=== PATIENT | female | born 1980 | race Caucasian/White ===

== ENCOUNTER → 2021-07-08 08:32 | Outpatient (CLI) | payer BC, SELFPAY ==
[2021-07-09 19:40] LABS: SARS-CoV-2 RNA PCR Negative
== END ==
PROVIDERS: PCP Family Medicine; Visit Provider Family Medicine
DX: Z20.822 Contact with and (suspected) exposure to COVID-19 (principal)
CPT/HCPCS: C9803; U0003; U0005

== ENCOUNTER 2022-01-15 07:39 | Outpatient (CLI) | payer BC, SELFPAY ==
--- NOTE | ~2022-01-15 | CT_ITS ---
EXAMINATION: CT soft tissue neck wo/w con DATE: 01/15/2022 08:11 INDICATION: Benign neoplasm of the parathyroid gland TECHNIQUE: Computed tomography (CT) of the neck was performed without and with 75 mL Omnipaque-300 in travenous contrast. Automated exposure control and iterative reconstruction technique were employed. The dose-length product was 748.37 mGy-cm. COMPARISON: None FINDINGS: Visualized portions of the bilateral mid to upper lungs are clear. Superior mediastinum is unremarkab le with normal caliber thoracic aorta with no dissection and no pathologically enlarged lymphadenopat hy. No other abnormal mediastinal masses identified. There is a 5 x 4 x 3 mm density caudal to the in ferior left thyroid lobe along side the contrast opacified inferior left thyroid artery and left ante rolateral margin of the trachea. Additional 6 x 5 x 4 mm nodule inferior to the right thyroid lobe al carlos the anterior margin of the proximal most right common carotid artery and right anterolateral arnoldo in of the trachea is also represent a potential parathyroid adenoma. Differential for both nodules in clude small lymph nodes. Thyroid gland is normal. Relatively symmetric pattern of multiple small norm al-sized lymph nodes in both the left and right head and neck. Bilateral parotid and submandibular gl ands are normal. Mild mucosal thickening in the bilateral ethmoid and maxillary sinuses. Orbits are n ormal. Visualized portion of the brain are normal with no abnormal enhancing lesions. Mastoid air glenys ls and middle ear cavities are clear. Cervical vasculature is unremarkable. 11 mm diameter lytic lesi on within the C6 vertebral body with suggestion of an internal trabecular pattern and small regions o f central fat attenuation which would favor hemangioma. Moderate lower cervical spondylosis. IMPRESSION: 1. A couple subcentimeter nodules as detailed above just inferior to the left and right thyroid lobes either which could represent a parathyroid adenoma or small lymph node. 2. Indeterminate 11 mm lytic lesion at C6 with appearance suggestive but not diagnostic of hemangioma . Reviewed, dictated and finalized at location A. IMPRESSION: 1. A couple subcentimeter nodules as detailed above just inferior to the left a nd right thyroid lobes either which could represent a parathyroid adenoma or sm all lymph node. 2. Indeterminate 11 mm lytic lesion at C6 with appearance suggestive but not di agnostic of hemangioma.
== END 2022-01-15 07:40 | disposition home or self-care (01) ==
PROVIDERS: PCP Family Medicine; Visit Provider Otolaryngology
DX: D35.1 Benign neoplasm of parathyroid gland (principal)
CPT/HCPCS: 70492; Q9967

== ENCOUNTER 2024-08-17 15:24 | Emergency (ER) | payer BC, SELFPAY ==
[2024-08-17 15:34] VITALS: BP 195/121; PULSE 98; RESP 14; TEMP 36.3; O2SAT 100
[2024-08-17 15:35] VITALS: BP 186/123
--- NOTE | 2024-08-17 15:39 | ED_ITS ---
HPI - Nausea/Vomiting/Diarrhea General Chief complaint: Nausea/Vomiting/Diarrhea Stated complaint: suspected dehydration, n/v 2d Time Seen by Provider: 08/17/24 15:39 Focused HPI: This is a 43-year-old female that presents emergency department for nausea, vomiting and diarrhea. Ongoing since yesterday. Presents for possible dehydration. Reports subjective fevers. GENERAL: Uncomfortable, well-nourished, and in no acute distress. HEAD: Normocephalic, atraumatic. CHEST: Clear to auscultation. ?No respiratory distress. HEART: Regular rate and rhythm.? NEURO: ?Alert and oriented x3. Patient screened in triage and initial orders placed.? ?Additional care and disposition to be based upon?diagnostic testing and treatment. Related Data Home Medications ?Medication ?Instructions ?Recorded ?Confirmed ?Last Taken ?Type aspirin 325 mg tablet 325 mg PO DAILY 12/18/21 12/18/21 Unknown History atorvastatin 20 mg tablet 20 mg PO DAILY 12/18/21 12/18/21 Unknown History Allergies Allergy/AdvReac Type Severity Reaction Status Date / Time No Known Allergies Allergy Unverified 08/17/24 15:25 Review of Systems 2 Review of Systems: All systems reviewed & are unremarkable except as noted in HPI and below PMFSH Past Medical History Medical History (Updated 08/17/24 @ 17:37 by Shelly Christensen PA-C) History of hyperlipidemia History of hypertension Social History Social History Smoking status: Current every day smoker Tobacco type: cigarettes Alcohol intake: never Substance use: never Exam 2 Narrative: GENERAL: Well-appearing, well-nourished, and in no acute distress. HEAD: Normocephalic, atraumatic. EYES: EOMI. CHEST: Clear to auscultation. No respiratory distress. No wheezes rales or rhonchi HEART: Regular rate and rhythm. No murmur heard. Normal peripheral pulses. ABDOMEN: Soft, nondistended EXTREMITIES: Normal range of motion. No edema. SKIN: Warm, dry, no rash. NEURO: No focal deficits. Alert and oriented x3. PSYCH: Normal mood and affect Course Course Emergency Course: Patient came up to triage requesting to have her IV taken out and to leave. I informed her of her results thus far. I did encourage her to stay for further evaluation with likely imaging of her abdomen, also to treat her blood pressure. She does not wish to stay any longer Vital Signs Vital signs: Vital Signs Temperature 97.4 F L 08/17/24 15:34 Pulse Rate 98 08/17/24 15:34 Respiratory Rate 14 08/17/24 15:34 Blood Pressure 195/121 H 08/17/24 15:34 Pulse Oximetry 100 08/17/24 15:34 Oxygen Delivery Room Air 08/17/24 15:34 Temperature 97.4 F L 08/17/24 15:34 Pulse Rate 99 08/17/24 16:50 Respiratory Rate 17 08/17/24 16:50 Blood Pressure 190/125 H 08/17/24 16:50 Pulse Oximetry 100 08/17/24 16:50 Oxygen Delivery Room Air 08/17/24 15:34 MDM - Nausea/Vomiting/Diarrhea MDM Narrative Medical decision making narrative: Patient presents to the emergency department for nausea, vomiting and diarrhea. She is afebrile and nontoxic appearing. Her blood pressure is elevated to 180s- 190s systolic. She has known history of hypertension and has not been able to keep down her blood pressure medication. CBC with leukocytosis to 13.1. Also shows hemoconcentration. Metabolic panel without concerning findings. COVID, influenza and RSV tests are negative. Patient came up to triage requesting to have her IV taken out and to leave. She reports improvement after zofran and pepcid. I informed her of her results thus far. I did encourage her to stay for further evaluation with likely imaging of her abdomen, also to treat her blood pressure. She does not wish to stay any longer. She was instructed to return any time for further evaluation and management. She does report she will take her blood pressure medication when she gets home Differential Diagnosis Differential diagnosis: Likely food poisoning, gastroenteritis, dehydration and other (diverticulitis, SBO, kidney stone, UTI) Lab Data Attestation: I reviewed the patient's lab results. 08/17/24 15:47 08/17/24 15:47 Labs: Lab Results 08/17/24 Range/Units 15:47 WBC 13.1 H (4.5-10.0) K/mm3 RBC 5.60 H (4.2-5.4) M/mm3 Hgb 17.1 H (12.0-15.0) g/dL Hct 49.5 H (37.0-47.0) % MCV 88.4 (80-100) fl MCH 30.5 (26-34) pg MCHC 34.5 (32-36) g/dl RDW 12.4 (11.5-14.5) % Plt Count 289 (150-375) k/mm3 MPV 10.0 (7.4-10.4) fl Immature Gran % (Auto) 0.5 (0-0.5) % Neut % (Auto) 85.3 H (45.5-73.1) % Lymph % (Auto) 7.2 L (18.3-44.2) % [place] % (Auto) 6.6 (2.6-8.5) % Eos % (Auto) 0.2 (0-4.4) % Baso % (Auto) 0.2 (0.2-1.2) % Lymph # (Auto) 0.94 (0.9-3.2) K/mm3 [place] # (Auto) 0.9 H (0.1-0.6) K/mm3 Eos # (Auto) 0.0 (0-0.3) K/mm3 Baso # (Auto) 0.0 (0.0-0.1) K/mm3 Abs Immat Gran (auto) 0.07 H (0.00-0.031) K/mm3 Absolute Neuts (auto) 11.2 H (1.3-6.7) K/mm3 Absolute Nucleated RBC 0.000 (0.0-0.012) K/mm3 Nucleated RBC % 0.0 (0.0-0.2) % Sodium 135 L (137-145) mmol/L Potassium 3.7 (3.4-5.0) mmol/L Chloride 96 L (98-107) mmol/L Carbon Dioxide 27 (22-30) mmol/L Anion Gap 12 (4-12) mmol/L BUN 10 (7-17) mg/dL Creatinine 0.70 (0.7-1.0) mg/dL Estim Creat Clear Calc 91 ml/min Estimated GFR > 60 (59 - ) Glucose 133 H (65-110) mg/dL Calcium 10.9 H (8.4-10.2) mg/dL Total Bilirubin 0.5 (0.2-1.3) mg/dL AST 29 (14-36) U/L ALT 25 (6-35) U/L Alkaline Phosphatase 96 (38-126) U/L Total Protein 8.0 (6.3-8.2) g/dL Albumin 4.7 (3.5-5.1) g/dL Lipase 110 (23-300) U/L Influenza A (RT-PCR) Negative (Negative) Influenza B (RT-PCR) Negative (Negative) RSV (RT-PCR) Negative (Negative) SARS-CoV-2 RNA (RT-PCR) Negative (Negative) Critical Care Time Critical Care Time Critical Care Time: No Discharge Plan Discharge Clinical Impression: Gastroenteritis Hypertension Qualifiers: Hypertension type: unspecified Qualified Code(s): I10 - Essential (primary) hypertension Patient Disposition: Home, Self-Care Condition: Improved Instructions: Gastroenteritis (ED), Hypertension (ED) Additional Instructions: Return to the ER if you experience fever, abdominal pain with nausea and vomiting, you are unable to keep down liquids or solids, pain or burning with urination, blood in the urine or any other symptoms that are concerning to you Small, frequent meals. [place] diet. Remain well hydrated. Ondansetron as needed for nausea Follow up with your primary care doctor Patient Language: Sami Prescriptions: New ondansetron 4 mg tablet,disintegrating 4 mg PO Q8H PRN (Reason: nausea and vomiting) Qty: 14 0RF No Action atorvastatin 20 mg tablet 20 mg PO DAILY aspirin 325 mg tablet 325 mg PO DAILY Follow-up/Referrals: Chiki,MD David [Primary Care Provider] -
--- OUTSIDE RECORDS SUMMARY | 2024-08-17 15:44 | XMS_ITS | Clinical Summary ---
Author Organization [facility] Address [address], [address] [address] Phone Care Team Providers Care Fermenting Cellar Dropper Name Role Phone David Monet MD Primary Care Provider [phone] Allergies No known active allergies Medications No known medications Family History Medical History Relation Name Comments Diabetes Father Alzheimer's Disease Maternal Grandfather Cancer Maternal Grandmother Leukemia/Lymphoma Maternal Grandmother Glaucoma Mother Cancer Paternal Grandmother Relation Name Status Comments Father Maternal Grandfather Maternal Grandmother Mother Alive Paternal Grandmother Social History Tobacco Use Types Packs/Day Years Used Date Smoking Tobacco: Every Day Cigarettes 0.3 31.1 Started: 1995 Smokeless Tobacco: Never Tobacco Cessation:Ready to Q uit: Not Asked; Counseling Given: Not Answered Alcohol Use Standard Drinks/Week Comments Yes 0 (1 standard drink = 0.6 oz pur e alcohol) Rare Comments Unknown Sex and Gender Information Value Date Recorded Sex Assigned at Not on file Legal Sex Female 10:02 AM CDT Gender Identity Not on file Sexual Orientation Not on file Last Filed Vital Signs Vital Sign Reading Time Taken Comments Blood Pressure - - Pulse - - Temperature - - Respiratory Rate - - Oxygen Saturation - - Inhaled Oxygen Concentration - - Weight 84.4 kg (186 lb) 04/11/2024 10:07 AM CDT Height 175.3 cm (5' 9 ) 04/11/2024 10:07 AM CDT Body Mass Index 27.47 04/11/2024 10:07 AM CDT Plan of Treatment Not on file Insurance [place] [id number] Care Teams Fermenting Cellar Dropper Relationship Specialty Start Date End Date David Monet MD [address] [place] [address] PCP - General Family Medicine 01/27/24
--- OUTSIDE RECORDS SUMMARY | 2024-08-17 15:44 | XMS_ITS | CONTINUITY OF CARE DOCUMENT ---
Author Name evelyn rivas Address Unknown Organization [facility] Address [address] [place] [address] Phone [phone] Care Team Providers Care Bottle Carrier Name Role Phone Fredy Truong MD Unavailable HÉCTOR BARRERA MD Unavailable [phone] HÉCTOR BARRERA MD Unavailable PROBLEMS Condition Status Date Provider Notes Cardiology examination active Fredy doyle MD Elevated Troponin, ruled out for [place] active Fredy Truong MD HTN essential active Fredy Truong MD Hypercholesterolemia active Fredy Truong MD Preop cardiovasc. examination active Fredy Truong MD Hypercalcemia active Fredy Truong MD Hyperparathyroidism active Fredy Nunez Anxiety active Fredy Truong MD ENCOUNTERS Date Type Provider Location Encounter Diag nosis - In-person encounter Office Visit Fredy Truong MD [facility] - In-person encounter Office Visit Fredy Truong MD [facility] - In-person encounter Office Visit Fredy Truong MD [facility] - In-person encounter Office Visit Fredy Truong MD [facility] Elevated Troponin, ruled out for MIAnxie ty - In-person encounter Office Visit Fredy Truong MD [facility] Cardiology examinationElevated Troponin, ruled out for MIHTN essentialHypercholesterolemiaPreop cardiovasc. examinationHypercalcemiaHyperparathyroidism VITAL SIGNS Date Observation Value Provider Body Mass Index (Ratio) 27.91 kg/m2 Yola Truong MD blood pressure, diastolic 84 mm[Hg] Li nkLog blood pressure, systolic 118 mm[Hg] Rufina kLog oxygen saturation, oximetry 98 % Heidi Montilla pulse rate 97 /min Heidi Montilla blood pressure, cuff size regular Ta janett Omntilla blood pressure, diastolic 84 mm[Hg] Ta bitha Montilla blood pressure, systolic 118 mm[Hg] Tab itha Montilla weight E&M 189 [lb_av] Heidi Montilla respiratory rate E&M 12 /min Heidi Montilla height E&M 69 [in_i] Heidi Montilla Body Mass Index (Ratio) 26.87 kg/m2 Yola Truong MD blood pressure, cuff size large Ke rri Zeny blood pressure, diastolic 80 mm[Hg] Ke rri Zeny blood pressure, systolic 116 mm[Hg] Zain ri Mary oxygen saturation, oximetry 98 % Vania Hernandez respiratory rate E&M 14 /min Vania guthrie pulse rate 79 /min Vania Chad downser weight E&M 182 [lb_av] Vania downser height E&M 69 [in_i] Vania Chad er Body Mass Index (Ratio) 26.43 kg/m2 Mk Byrne blood pressure, diastolic 109 mm[Hg] St baldo Mosley blood pressure, systolic 168 mm[Hg] Sta kerry Mosley oxygen saturation, oximetry 98 % Helgakerry Mosley pulse rate 84 /min Helgakerry Mosley respiratory rate E&M 18 /min Helga D tonie weight E&M 179 [lb_av] Helgakerry Mosley height E&M 69 [in_i] Helga Mosley Body Mass Index (Ratio) 25.84 kg/m2 Yola Truong MD blood pressure, diastolic 109 mm[Hg] Kim archuleta Gore blood pressure, systolic 157 mm[Hg] Sandeep dela cruz Gore oxygen saturation, oximetry 98 % Adrianne Gore pulse rate 100 /min Adrianne nunez weight E&M 175 [lb_av] Adrianne nunez respiratory rate E&M 16 /min Carlee cintron Gore blood pressure, cuff size large Kim archuleta Bao height E&M 69 [in_i] Adrianne nunez Body Mass Index (Ratio) 25.99 kg/m2 Yola Truong MD blood pressure, diastolic 112 mm[Hg] Casie nkLogjagjit blood pressure, systolic 164 mm[Hg] Rufina Mcgeeogjagjit blood pressure, diastolic 112 mm[Hg] St acpaulina Mosley blood pressure, systolic 164 mm[Hg] John Mosley oxygen saturation, oximetry 97 % Helga Mosley respiratory rate E&M 18 /min Helga schilling pulse rate 85 /min Helga Mosley weight E&M 176 [lb_av] Helga Mosley height E&M 69 [in_i] Helga Mosley HISTORY OF MEDICATION USE Medication Status Instructions Dates Provider Indications Com ments phentermine 30 mg capsule active TAKE 1 CAPSULE BY MOUTH ONCE DAILY IN THE MORNING Ferdy Truong MD celecoxib 200 mg capsule active Fredy Truong MD diclofenac sodium 75 mg tablet,delayed release (DR/EC) completed - 7 Fredy Truong MD atorvastatin 20 mg tablet active Fredy Truong MD lisinopril 20 mg tablet active Take 1 tablet by mouth once a day 9 Fredy Truong MD pantoprazole 40 mg tablet,delayed release (DR/EC) active Helga Mosley lisinopril 10 mg tablet completed - 9 Fredy Truong MD SOCIAL HISTORY Date Observation Value Provider number of years as a smoker 20 a Fredy Truong MD smoking history, tot al pack/day 5-6 cigs a day Fredy Truong MD cigarette use yes Fredy Truong MD smoking status Current every day smoker Yumiko Truong MD social history reviewed E&M revi ewed - no changes required Fredy Truong MD number of years as a smoker 20 a Vania Hernandez smoking history, tot al pack/day 5-6 cigs a day Vania Hernandez cigarette use yes Vania leggett smoking status Current every day smoker K frannie Hernandez smoking status Former smoker Helga Mosley smoking status Former smoker Fredy Gardner ra, MD social history reviewed E&M revi ewed - no changes required Fredy Truong MD social history E&M S moking History: P atient currently smokes every day. Fredy Truong MD social history reviewed E&M revi ewed - no changes required Fredy Truong MD smoking status Former smoker Helga Mosley INSURANCE PROVIDERS Payer name Policy type / Coverage type Stanley red democrat ID [facility] Medicaid [id number] ADVANCE DIRECTIVES Name Date DISCUSSED - NO DECISION MADE TREATMENT PLAN Date Name Performer [id number],B, H er updated medication list for this problem includes: Lisinopril 20 Mg Tablet (Lisinopril) ..... Take 1 tablet by mouth once a day Amlodipine 5 Mg Tablet (Amlodipine) ..... Take 1 tablet by mouth once a day BP today: 116/80 P rior BP: 168/109 (08/31/2022) Fredy Truong MD [id number],S, H er updated medication list for this problem includes: Atorvastatin 20 Mg Tablet (Atorvastatin) Fredy Truong MD [id number],S, Fredy Gardner ra, MD [id number],S, Fredy Gardner ra, MD [id number],W, Fredy Gardner ra, MD [id number],S, Fredy Gardner ra, MD [id number],S, Fredy aGrdner ra, MD [id number],S, H er updated medication list for this problem includes: Atorvastatin 20 Mg Tablet (Atorvastatin) Fredy Truong MD [id number],W, B P today: 157/109 P rior BP: 164/112 (06/02/2022) The following medications were removed from the medication list: Lisinopril 10 Mg Tablet (Lisinopril) & #13;Her updated medication list for this problem includes: Lisinopril 10 Mg Tablet (Lisinopril) Fredy Truong MD [id number],N, Fredy Gardner ra, MD [id number],N, Fredy Gardner ra, MD [id number],N, H er updated medication list for this problem includes: Lisinopril 10 Mg Tablet (Lisinopril) Fredy Truong MD [id number],S, Fredy Gardner ra, MD [id number],W, H er updated medication list for this problem includes: Lisinopril 10 Mg Tablet (Lisinopril) Fredy Truong MD [id number],N, Fredy Gardner ra, MD Telehealth - f/u in march abhishek Truong MD Telehealth - f/u in march: H er updated medication list for this problem includes: Atorvastatin 20 Mg Tablet (Atorvastatin) Fredy Truong MD Telehealth - f/u in march: P rior BP: 118/84 (03/27/2024) Her updated medication list for this problem includes: Lisinopril 20 Mg Tablet (Lisinopril) ..... Take 1 tablet by mouth once a day Fredy Truong MD Telehealth - f/u in march: c leared for upcoming parathyroidectomy Fredy Truong MD Cardiology:candidate for surgery Fredy Truong MD Cardiology:at appropriate riks f or colooscopy Fredy Truong MD Cardiology: H er updated medication list for this problem includes: Lisinopril 20 Mg Tablet (Lisinopril) ..... Take 1 tablet by mouth once a day Amlodipine 5 Mg Tablet (Amlodipine) ..... Take 1 tablet by mouth once a day BP today: 116/80 P rior BP: 168/109 (08/31/2022) Fredy Truong MD Cardiology: H er updated medication list for this problem includes: Atorvastatin 20 Mg Tablet (Atorvastatin) Fredy Truong MD Cardiology Fredy Nunez Cardiology Fredy Nunez Cardiology Fredy Nunez Cardiology Fredy Nunez Cardiology Fredy Nunez Cardiology: H er updated medication list for this problem includes: Atorvastatin 20 Mg Tablet (Atorvastatin) Fredy Truong MD Cardiology: B P today: 157/109 P rior BP: 164/112 (06/02/2022) The following medications were removed from the medication list: Lisinopril 10 Mg Tablet (Lisinopril) Her updated medication list for this problem includes: Lisinopril 10 Mg Tablet (Lisinopril) Fredy Truong MD Cardiology Fredy Nunez Cardiology Fredy Nunez Cardiology: H er updated medication list for this problem includes: Lisinopril 10 Mg Tablet (Lisinopril) Fredy Truong MD Cardiology Fredy Nunez Cardiology: H er updated medication list for this problem includes: Lisinopril 10 Mg Tablet (Lisinopril) Fredy Truong MD Cardiology Fredy Nunez Date Name Ambulatory BP Stress Exercise Card iolite HISTORY OF PROCEDURES Procedure Date Procedure Name Provider Procedure Notes S tatus EKG Fredy Truong MD complet ed EKG Fredy Truong MD complet ed
--- OUTSIDE RECORDS SUMMARY | 2024-08-17 15:44 | XMS_ITS | Clinical Summary ---
Author Organization [facility] Address [address] [place] [address]. [place], [place] [address] [place] [id number] Care Team Providers Care Product Management Consultant Name Role Phone David Monet MD Primary Care Provider [phone] Social History Tobacco Use Types Packs/Day Years Used Date Smoking Tobacco: Never Assessed Comments Unknown Sex and Gender Information Value Date Recorded Sex Assigned at Not on file Legal Sex Female 10:50 AM CDT Gender Identity Not on file Sexual Orientation Not on file Plan of Treatment Health Maintenance Due Date Last Done Comments Cervical Cancer Screening Pap Smear (Age 30 to 64) Every 3 Years 1978 Colorectal Cancer Screening Colonoscopy (10 Years) 1978 Annual Physical 1981 Hepatitis C 1996 Hepatitis B Vaccines (1 of 3 - 19+ 3-dose series) 1997 Cervical Cancer Screening Pap with HPV Testing (Age 30 to 64) Every 5 Years 2008 Cervical Cancer Screening with HPV 2008 Mammogram Screening 2018 COVID-19 Vaccine (2023- season) 2024 01/18/2021, 01/18/2021, 12/28/2020, Additional history exists Influenza Adult (#1) 2024 DTaP, Tdap and Td Vaccines (2 - Td or Tdap) 12/03/2031 12/02/2021 HPV Vaccines Aged Out No longer eligi ble based on patient's age to complete this topic Meningococcal B Vaccine Aged Out No l onger eligible based on patient's age to complete this topic Meningococcal Vaccine Aged Out No katharine deniz eligible based on patient's age to complete this topic Pneumococcal Vaccine: Pediatrics (0 to 5 Years) and At-Risk Patients (6 to 64 Years) Aged Out No longer eligible based on patient's age to complete this topic RSV Immunizations Under 20 Months Aged Out No longer eligible based on patient's age to complete this topic Insurance C/O [employer] [place] [id number] Care Teams Product Management Consultant Relationship Specialty Start Date End Date David Monet MD PCP - General HOSPITALIST 04/03/22
--- OUTSIDE RECORDS SUMMARY | 2024-08-17 15:44 | XMS_ITS | Data Portability ---
Author Organization [facility] [employer], Main Office Address [address] [place] [address] Care Team Providers Care Undraped Artist Model Name Role Phone DAVID MONET Primary Care Provider [phone] DAVID MONET Referring Provider [phone] DAVID MONET Primary Care Provider [phone] Assessment Encounter Date Assessment Date Assessment LastModified by Organization Details LastModified Time 06/07/2024 06/07/2024 The patient gave verbal consent using TeleHealth services and the consent is documented in the medical record prior to using the service. The patient has been informed of what a TeleMedicine visit is. Patient is located at home. Provider is located at office. Names and roles of persons in addition to the patient and provider participating in telemedicine services include none. The patient had a 6 minute TeleMedicine consultation via [employer] to discuss the following: Not available 06/07/2024 18:12:48 06/28/2024 06/28/2024 43-year-old femyanira mccain presents for evaluation of her right hip. He reports pain that has been going on for about a year and a half, getting progressively worse. He is now to the point where she had to take a leave of absence from her job. She currently rates her pain as 7/10. It is located over the lateral and posterior aspects of the hip. She denies any acute injury. She has done physical therapy without significant improvement. She is also taking diclofenac without improvement. Also CBD oil and tramadol which also do not help. She works as a repairer general in a bar. She currently smokes about half pack a day. Review of systems per patient questionnaire Physical exam: She has Trendelenburg gait. Tenderness over the trochanter and posterior aspect of the trochanter. No pain with logroll. Flexion 110 with discomfort, negative F 80 IR, if ABER. Twenty of internal rotation, 40 of external rotation. Negative Stinchfield. Good hip flexion strength. X-rays were reviewed, demonstrating no acute bony abnormality, mild degenerative changes with some sclerosis and preserved joint space. She has trochanteric bursitis of the hip. We will continue with conservative management. She requested switching to a different anti-inflammatories and we will try Celebrex instead. We also discussed physical therapy for the lateral hip specifically for strengthening and stretching and she wanted to proceed with that as well. We also discussed cortisone injection given her significant symptoms which she proceeded with an tolerated well. We will see her back in 6-8 weeks for recheck after the course treatment. She is in agreement with plan. [email or web address] Not available 06/28/2024 11:10:11 08/01/2024 08/01/2024 43 yo F with - PRE-OP EXAM - WT LOSS PROGRAM - HLD - HTN - RT HIP OA, moderate - CHRONIC LOW BACK PAIN - SNORING, r/o FELTON - ALLERGIC RHINITIS, seasonal - HYPERPARATHYROIDISM - HYPERCALEMIA - RT KIDNEY CYST (5 cm) - HIATAL HERNIA, small - ANXIETY DISORDER - OVERWEIGHT - SMOKER - H/O OBESITY I - H/O ELEVATED TROPONIN - H/O RICO X-ray Rt hip, L-spine, cxr: 02/14/24. Home sleep study: 02/07/24. Annual labs: 02/03/24. CT A&P w: 04/24/22. CT chest w: 04/21/22. CT neck w/wo: 04/17/22. US kidney: 12/12/21. NM Parathyroid scan: 12/09/21. CT A & P wo: 11/12/21. X-ray L-spine: 10/21/21. US thyroid: 10/21/21. X-ray Rt hip: 09/04/21. CXR: 03/23/21. Annual labs: 03/14/21. Wt: 225(03/27/21) - 220(05/01/21) - 217(06/02/21) - 210(07/07/21) - 200(08/04/21) - 194(09/04/21) - 203(10/08/21) - 196(11/06/21) - 191(12/11/21) - 186(01/15/22) - 180(03/10/22) - 180(04/28/22) [stop] Wt: 196(05/09/24) - 194(06/06/24) - 190(08/01/24) D/w pt in detail about her findings, recent labs & imagines and further plan of care. All questions answered for pt. Pt is optimized for the surgery on 08/21/24 and wants to proceed as scheduled. Advised pt to f/u with her ENT about any pre-op testing and lasting machine operator bed for cardiac clearance. Hold off on meds as directed by surgeon. Pt is aware of them. All meds verified with pt. Meds as directed. Diet and exercise explained in detail. Encouraged pt to cut down and stop smoking. Educated pt about alarming symptoms to monitor at home. Cont f/u with Ortho as per schedule. Cont f/u with Cardio as per schedule. Cont f/u with ENT at [place] as per schedule. Cont f/u with Endo as per schedule. Cont f/u with Uro as per schedule. Pt has done PT. Offered to refer to counsellor; but pt declined. HM: WWE - 03/07/24, normal. Cont f/u with Gyne/BILLING ADMINISTRATOR as per schedule. Mammo - 02/14/24 normal. DEXA - 12/12/21, normal. Colonoscopy - Referred to GI. Flu - Pt declined. Tdap - At HD. F/u in 2 months. Annual labs in 02/09. [email or web address] Not available 08/01/2024 11:53:27 Plan of Treatment Reminders Order Date Submit Date Provider Last Modified By Organization Details Last Modified Time Details Appointments Any 5 2024 09:25A Mary Grace Benoit MD Not available Not available Not available Any 15 2024 10:15A Mary Grace Monet MD Not available Not available Not available Lab None recorded. Referral physical therapist referral - Please contact pt to schedule for R hip. Thanks 2023 024 [facility], [address] [place], [address], 06/28/2024 12:30:16 Procedures injection /aspirati on joint/bur sa (PROC) 2023 [email or web address] 1 In-Office Order, Internal Use Only DO Not Attach Compendium DO Not Attach Compendium, Do Not Delete/merge, [id number] 06/28/2024 10:52:39 Surgeries None recorded. Imaging None recorded. Medication Orders celecoxib 200 mg capsule [address] [facility] [address] [facility], [address] [place] [address], [id number], 06/28/2024 11:26:47 bupivacai ne HCl 0.5 % (5 mg/mL) injection solution [address] [facility], [address] [place] [address], [id number], 06/28/2024 11:26:47 Kenalog 10 mg/mL suspensio n for injection [address] [facility], [address] [place] [address], [id number], 06/28/2024 11:26:47 phentermi ne 30 mg capsule 2024 025 [facility], [address] [place] [address], [id number], 08/01/2024 11:43:19 lisinopri l 20 mg tablet 2024 025 [facility], [address] [place] [address], [id number], 08/01/2024 11:43:14 pantopraz ole 20 mg tablet,de layed release 2024 025 [email or web address], [address] [place] [address], [id number], 08/01/2024 11:44:15 atorvasta tin 40 mg tablet 2024 025 [facility], [address] [facility], [place], [address], 08/01/2024 11:43:19 Patient TargetsNo targets recorded. Patient Instructions Encounter Date Encounter Id Patient Instructions Last Modified By Organization Details Last Modified Time 06/07/2024 [id number] 1. Right simple renal cysts 2. No stones 3. Follow up as needed Not available 06/07/2024 18:13:12 08/01/2024 [id number] high cholesterol : care instructions [email or web address] Not available 08/01/2024 11:43:08 Reason for Referral Physical Therapist Referral for Pain in right hip joint R hip Please contact pt to schedule for R hip. Thanks Referring Physician: Kris Benoit, Orthopedic Surgery, Encounter Date: 06/28/2024 Results Created Date Observation Date Name Description Value Unit Range Abnormal Flag Note LastModifiedBy Organization Detail LastModifiedTime 07/26/1907/26/2024 LIPID PANEL cholesterol 192 mg/dL 140-19 9 NIH DANIA NSUS RECOM MENDA TION FOR TREMAINE STERO L: ADULT CHILD LOW RISK: <200 <170 BORDE RLINE : <200- 239 ----- HIGH RISK: >240 >200 Not Available [facility] (Lab) [address] [place], [address], 07/26/2024 14:48:22 07/26/19 25 07/26/2024 LIPID PANEL triglyceride s 162 mg/dL 0-150 high NIH DANIA NSUS REPOR T RECOM MENDA TION FOR TRIGL YCERI KEYANNA: ADULT CHILD LOW RISK: <150 ----- BODER LINE: 150-1 99 ----- HIGH RISK: >200 ----- Not Available [facility] (Lab) [address] [place], [address], 07/26/2024 14:48:22 07/26/19 25 07/26/2024 LIPID PANEL HDL cholesterol 74 mg/dL 40- Not Available [facility] (Lab) [address] [place], [address], 07/26/2024 14:48:22 07/26/19 25 07/26/2024 LIPID PANEL LDL cholesterol, calculated 86 mg/dL 0-130 NIH DANIA NSUS REPOR T RECOM MENDA TIONS FOR LDL: ADULT CHILD LOW RISK <130 <110 (OPTI MAL LDL) <100 ----- BORDE RLINE : 130-1 59 ----- HIGH RISK: >160 >130 A TRIGL YCERI DE RESUL T >400 INVAL IDATE S THE CALCU LATIO N FOR LDL FRACT IONAT ION - THE LDL RESUL T WILL NOT BE REPOR CHARLIE. Not Available [facility] (Lab) [address] [place], [address], 07/26/2024 14:48:22 08/08/19 25 08/08/2024 CBC/C OMPLE TE BLD COUNT W/DIF F white blood cells 6.3 x10'3 /uL 4.2-10 .8 Not Available [facility] (Lab) [address] [place], [address], 08/08/2024 12:58:26 08/08/19 25 08/08/2024 CBC/C OMPLE TE BLD COUNT W/DIF F red blood cells 4.96 x10'6 /uL 3.80-5 .20 Not Available [facility] (Lab) [address] [place], [address], 08/08/2024 12:58:26 08/08/19 25 08/08/2024 CBC/C OMPLE TE BLD COUNT W/DIF F hemoglobin 15.3 g/dL 12.0-1 5.6 Not Available [facility] (Lab) [address] [place], [address], 08/08/2024 12:58:26 08/08/19 25 08/08/2024 CBC/C OMPLE TE BLD COUNT W/DIF F hematocrit 45.1 % 35.7-4 5.7 Not Available [facility] (Lab) [address] [place], [address], 08/08/2024 12:58:26 08/08/19 25 08/08/2024 CBC/C OMPLE TE BLD COUNT W/DIF F mean red cell volume 90.9 fL 82.0-9 9.0 Not Available [facility] (Lab) [address] [place], [address], 08/08/2024 12:58:26 08/08/19 25 08/08/2024 CBC/C OMPLE TE BLD COUNT W/DIF F mean red cell hemoglobin 30.8 pg 27.0-3 3.0 Not Available [facility] (Lab) [address] [place], [address], 08/08/2024 12:58:26 08/08/19 25 08/08/2024 CBC/C OMPLE TE BLD COUNT W/DIF F mean RBC HGB concentratio n 33.9 g/dL 31.0-3 6.0 Not Available [facility] (Lab) [address] [place], [address], 08/08/2024 12:58:26 08/08/19 25 08/08/2024 CBC/C OMPLE TE BLD COUNT W/DIF F red cell distribution width 12.6 % 11.8-1 5.5 Not Available [facility] (Lab) [address] [place], [address], 08/08/2024 12:58:26 08/08/19 25 08/08/2024 CBC/C OMPLE TE BLD COUNT W/DIF F platelets 329 x10'3 /uL 150-40 0 Not Available [facility] (Lab) [address] [place], [address], 08/08/2024 12:58:26 08/08/19 25 08/08/2024 CBC/C OMPLE TE BLD COUNT W/DIF F mean platelet volume 10.2 fL 9.0-12 .4 Not Available [facility] (Lab) [address] [place], [address], 08/08/2024 12:58:26 08/08/19 25 08/08/2024 CBC/C OMPLE TE BLD COUNT W/DIF F neutrophils 44.2 % 39.0-7 2.0 Not Available [facility] (Lab) [address] [place], [address], 08/08/2024 12:58:26 08/08/19 25 08/08/2024 CBC/C OMPLE TE BLD COUNT W/DIF F lymphocytes 38.4 % 16.0-4 7.0 Not Available [facility] (Lab) [address] [place], [address], 08/08/2024 12:58:26 08/08/19 25 08/08/2024 CBC/C OMPLE TE BLD COUNT W/DIF F monocytes 8.4 % 5.0-12 .0 Not Available [facility] (Lab) [address] [place], [address], 08/08/2024 12:58:26 08/08/19 25 08/08/2024 CBC/C OMPLE TE BLD COUNT W/DIF F eosinophils 7.4 % 1.0-7. 0 high Not Available [facility] (Lab) [address] [place], [address], 08/08/2024 12:58:26 08/08/19 25 08/08/2024 CBC/C OMPLE TE BLD COUNT W/DIF F basophils 1.3 % 0.0-2. 0 Not Available [facility] (Lab) [address] [place], [address], 08/08/2024 12:58:26 08/08/19 25 08/08/2024 CBC/C OMPLE TE BLD COUNT W/DIF F immature granulocytes 0.3 % 0.00-0 .50 Not Available [facility] (Lab) [address] [place], [address], 08/08/2024 12:58:26 08/08/19 25 08/08/2024 CBC/C OMPLE TE BLD COUNT W/DIF F neutrophils, absolute count 2.79 x10'3 /uL 1.5-8. 0 Not Available [facility] (Lab) [address] [place], [address], 08/08/2024 12:58:26 08/08/19 25 08/08/2024 CBC/C OMPLE TE BLD COUNT W/DIF F lymphocytes, absolute count 2.42 x10'3 /uL 1.07-3 .43 Not Available [facility] (Lab) [address] [place], [address], 08/08/2024 12:58:26 08/08/19 25 08/08/2024 CBC/C OMPLE TE BLD COUNT W/DIF F monocytes, absolute count 0.53 x10'3 /uL 0.29-0 .99 Not Available [facility] (Lab) [address] [place], [address], 08/08/2024 12:58:26 08/08/19 25 08/08/2024 CBC/C OMPLE TE BLD COUNT W/DIF F eosinophils, absolute count 0.47 x10'3 /uL 0.02-0 .53 Not Available [facility] (Lab) [address] [place], [address], 08/08/2024 12:58:26 08/08/19 25 08/08/2024 CBC/C OMPLE TE BLD COUNT W/DIF F basophils, absolute count 0.08 x10'3 /uL 0.01-0 .08 Not Available [facility] (Lab) [address] [place], [address], 08/08/2024 12:58:26 08/08/19 25 08/08/2024 CBC/C OMPLE TE BLD COUNT W/DIF F immature granulocytes ,absolute 0.02 x10'3 /uL 0.00-0 .05 Not Available [facility] (Lab) [address] [place], [address], 08/08/2024 12:58:26 08/08/19 25 08/08/2024 CBC/C OMPLE TE BLD COUNT W/DIF F nucleated red blood cells 0.0 % -0 Not Available [facility] (Lab) [address] [place], [address], 08/08/2024 12:58:26 08/08/19 25 08/08/2024 CBC/C OMPLE TE BLD COUNT W/DIF F NRBC# 0.00 x10'3 /uL Not Available [facility] (Lab) [address] [place], [address], 08/08/2024 12:58:26 08/08/19 25 08/08/2024 COMPR EHENS NUBIA METAB OLIC PANEL sodium 136 mmol/ L 137-14 5 low Not Available [facility] (Lab) [address] [place], [address], 08/08/2024 13:32:42 08/08/19 25 08/08/2024 COMPR EHENS NUBIA METAB OLIC PANEL potassium 4.9 mmol/ L 3.5-5. 1 Not Available [facility] (Lab) [address] [place], [address], 08/08/2024 13:32:42 08/08/19 25 08/08/2024 COMPR EHENS NUBIA METAB OLIC PANEL chloride 109 mmol/ L 98-107 high Not Available [facility] (Lab) [address] [place], [address], 08/08/2024 13:32:42 08/08/19 25 08/08/2024 COMPR EHENS NUBIA METAB OLIC PANEL carbon dioxide 27 mmol/ L 22-30 Not Available [facility] (Lab) [address] [place], [address], 08/08/2024 13:32:42 08/08/19 25 08/08/2024 COMPR EHENS NUBIA METAB OLIC PANEL anion gap 4.9 mmol/ L 14-22 low Not Available [facility] (Lab) [address] [place], [address], 08/08/2024 13:32:42 08/08/19 25 08/08/2024 COMPR EHENS NUBIA METAB OLIC PANEL glucose 94 mg/dL 70-99 Not Available [facility] (Lab) [address] [place], [address], 08/08/2024 13:32:42 08/08/19 25 08/08/2024 COMPR EHENS NUBIA METAB OLIC PANEL BUN 12 mg/dL 8-19 Not Available [facility] (Lab) [address] [place], [address], 08/08/2024 13:32:42 08/08/19 25 08/08/2024 COMPR EHENS NUBIA METAB OLIC PANEL creatinine 0.90 mg/dL 0.66-1 .25 Not Available [facility] (Lab) [address] [place], [address], 08/08/2024 13:32:42 08/08/19 25 08/08/2024 COMPR EHENS NUBIA METAB OLIC PANEL GFR >60 Refer ence Range : [place] ge GFR Healt hy Adult : >60 mL/mi n/1.7 3 m2 Chron ic Kidne y Disea se: 15-60 mL/mi n/1.7 3 m2 Kidne y Failu re: <15/m L/min /1.73 m2 www.n iddk. nih.g ov The MDRD study equat ion has not been valid ated in child raissa <18 years of age; pregn ant women ; the elder ly >85 years of age; or in some racia l or ethni c subgr oups, such as Hispa nics. Outsi de the valid ated domingo eters , estim ated GFR is less accur ate, requi ring clini harley judgm ent on a case- by-ca se basis . Clini harley inter preta tion for other races and ages must be made by the clini andrea. The MDRD study equat ion has not been valid ated for the evalu ation of serum creat inine relat ed to nutri melania l statu s or medic ation usage . For perso ns <18 years of age, a pedia tric GFR calcu lator is avail able on the [facility] websi te: https ://thien w.mauricio gilmore.o nancy/pr ofess ional s/kdo qi/gf r_cal culat or Not Available [facility] (Lab) [address] [place], [address], 08/08/2024 13:32:42 08/08/19 25 08/08/2024 COMPR EHENS NUBIA METAB OLIC PANEL alkaline phosphatase 82 U/L 38-126 Not Available [facility] (Lab) [address] [place], [address], 08/08/2024 13:32:42 08/08/19 25 08/08/2024 COMPR EHENS NUBIA METAB OLIC PANEL alanine aminotransfe rase 17 U/L 0-35 Not Available [facility] (Lab) [address] [place], [address], 08/08/2024 13:32:42 08/08/19 25 08/08/2024 COMPR EHENS NUBIA METAB OLIC PANEL aspartate aminotransfe rase 23 U/L 15-37 Not Available [facility] (Lab) [address] [place], [address], 08/08/2024 13:32:42 08/08/19 25 08/08/2024 COMPR EHENS NUBIA METAB OLIC PANEL bilirubin, total 0.60 mg/dL 0.20-1 .30 Not Available [facility] (Lab) [address] [place], [address], 08/08/2024 13:32:42 08/08/19 25 08/08/2024 COMPR EHENS NUBIA METAB OLIC PANEL calcium 10.6 mg/dL 8.4-10 .2 high Not Available [facility] (Lab) [address] [place], [address], 08/08/2024 13:32:42 08/08/19 25 08/08/2024 COMPR EHENS NUBIA METAB OLIC PANEL total protein 6.9 g/dL 6.3-8. 2 Not Available [facility] (Lab) [address] [place], [address], 08/08/2024 13:32:42 08/08/19 25 08/08/2024 COMPR EHENS NUBIA METAB OLIC PANEL albumin 4.2 g/dL 3.4-5. 0 Not Available [facility] (Lab) [address] [place], [address], 08/08/2024 13:32:42 08/08/19 25 08/08/2024 COMPR EHENS NUBIA METAB OLIC PANEL globulin 2.7 g/dL 2.6-4. 2 Not Available [facility] (Lab) [address] [place], [address], 08/08/2024 13:32:42 08/08/19 25 08/08/2024 COMPR EHENS NUBIA METAB OLIC PANEL A/G ratio 1.6 ratio 1.0-2. 0 Not Available [facility] (Lab) [address] [place], [address], 08/08/2024 13:32:42 06/01/20 24 06/01/2024 CT, abdom en + pelvi s, w/o contr ast No observ ation record ed. [id number] [place], [address], 06/06/2024 10:42:42 Result Notes None recorded. Problems Name Problem SNOMED Code Status Onset Date Resolution Date Notes Provider Name and Address Organization Details Recorded Time Anxiety disorder 517897271 Active 2020 Not Available [facility] 3 23:11:39 Overweight 153815293 Active 2021 Not Available [facility] 3 23:11:39 Hypertensi ve disorder 71693403 Active 2021 Not Available [facility] 3 23:11:39 Hyperlipid emia 15411654 Active 2020 Not Available [facility] 3 23:11:40 Hyperparat hyroidism 42237764 Active 2020 Not Available [facility] 3 23:11:40 Cyst of kidney 196678108 Active 2021 Not Available [facility] 3 23:11:40 Hiatal hernia 88460045 Active 2021 Not Available [facility] 3 23:11:40 Gastroesop hageal reflux disease without esophagiti s 872377058 Active 2022 David Monet MD [address], [place], [address] , [facility] [employer] 3 17:38:01 Seasonal allergic rhinitis 416898742 Active 2022 David Monet MD [address], [place], [address] , [facility] [employer] [place] 3 16:28:42 Smoker 29396388 Active 2022 David Monet MD [address], [place], [address] , [facility] [employer] [facility] [employer] [facility] 3 11:23:00 Sleep apnea 62920446 Active 2023 David Monet MD [address], [place], [address] , [place] [facility] 4 12:35:58 Obstructiv e sleep apnea syndrome 37785332 Active 2023 Manuel Akhtar MD [address], [place], [address] , [place] [facility] 4 11:52:15 Chronic low back pain 276596556 Active 2023 David Monet MD [address], [place], [address] , [place] [facility] 4 15:17:25 Pain in right hip joint 3540701458219 02 Active 2023 David Monet MD [address], [place], [address] , [place] [facility] 4 15:17:25 Osteoarthr itis of hip 152405986 Active 2023 David Monet MD [address], [place], [address] , [place] [facility] 4 15:48:18 Urinary symptoms 638523795 Active 2023 JUDY Anne [address], [place], [address] , [place] [facility] 4 11:38:48 Blood in urine 87590824 Active 2023 Alanna balderas, [place] [facility] 4 09:23:03 Kidney stone 58208661 Active 2023 Chris Roger MD [address], [place], [address] , [place] [facility] 4 18:38:33 Complex renal cyst 663316500 Active 2023 Chris Roger MD [address], [place], [address] , [place] [facility] 4 18:38:41 Simple renal cyst 76857238 Active 2023 Chris Roger MD [address], [place], [address] , [employer] 4 18:13:21 Notes:Medical History: Nicot ine use Anxiety Rhinitis Hyperparathyroidism Mild OSAHS, AHI = 1, 02/07/24 Hypertension Hyperlipidemia 2 mm LLL pulm nodule Hiatal hernia with DENISE Fatty liver Right renal cyst Vit B 12 deficiency Procedure History: C- sections 1998, 2015 Tubal ligation 2015 Occupational History: contractor field hauling Problem Notes None recorded. Procedures Surgical History Date Name Laterality Status Provider Name and Address Organization Details Recorded Time 4 Ortho - Cortisone Injection completed Kris Benoit MD [address], [place], [address], [employer] 06/28/2024 11:08:01 4 Smoking Cessation completed David Monet MD [address], [place], [address], [employer] 05/09/2024 12:08:32 4 Date of Last Pap Smear completed Patience El RN MD [employer] 03/07/2024 11:21:33 4 Most Recent Mammogram completed Patience El RN MD [employer] [facility] [employer] 03/07/2024 11:21:03 4 Smoking Cessation completed David Monet MD [address], [place], [address], [employer] 01/26/2024 12:23:28 3 Smoking Cessation completed David Monet MD [address], [place], [address], [employer] 01/07/2023 11:22:43 6 section completed Not Available [facility] 09/16/2022 23:10:48 6 ligation of fallopian tube completed Not Available [facility] 09/16/2022 23:10:48 9 section completed Yecenia Jacobs [facility] [employer] 06/28/2024 10:28:24 Imaging Results Imaging Date Name Status LastModified by Organiz ation Details LastModified Time 06/01/2024 CT, abdomen + pelvis, w/o contrast completed [id number] [facility] [address], [place], [address], 06/06/2024 10:42:42 Procedure Notes None recorded. Medical Equipment None Reported. Allergies Allergen ID Allergen Name Allergen Category Reaction Reaction Severity Criticality Documentation Date Start Date Code Code System Note Provider Name and Address Organization Details Recorded Time 66529 No known allergy (situatio n) Not available Not available Not available Not available 05/09/2024 [id number] SNOMED David Monet MD [address] [facility] [address], [place], [address] [place], [place] [address] 11:37:32 No known drug allergies Medications Name Sig Start Date Stop Date Status Note LastModified by Organization Details LastModified Time celecoxib 200 mg capsule Take 1 capsule every day by oral route. active Not Available Not Available No t Available cyclobenz aprine 10 mg tablet Take 1 tablet every 12 hours by oral route as needed for 30 days. active Not Available Not Available No t Available amoxicill in 500 mg capsule TAKE 1 CAPSULE BY MOUTH EVERY 8 HOURS 03/13 completed Not Available Not Available Not Available atorvasta tin 40 mg tablet Take 1 tablet every day by oral route at bedtime for 90 days. 2024 active Not Available Not Available Not Avai lable atorvasta tin 20 mg tablet TAKE 1 TABLET BY MOUTH ONCE DAILY AT BEDTIME 01/25 completed Not Available Not Available Not Available metoclopr amide 5 mg/mL injection solution 10 mg by injectio n route. 11/12 completed Not Available Not Available Not Available nicotine 14 mg/24 hr daily transderm al patch APPLY 1 PATCH TOPICALL Y ONCE DAILY DIRECTED active Not Available Not Available No t Available azithromy lucy 250 mg tablet TAKE 2 TABLETS BY MOUTH ON DAY 1, AND THEN TAKE 1 TABLET BY MOUTH ONCE A DAY ON DAY 2 THROUGH DAY 5 01/07 completed Not Available Not Available Not Available fluconazo le 150 mg tablet TAKE 1 TABLET BY MOUTH NEEDED DIRECTED FOR 1 DAY REPEAT AFTER 5 DAYS IF NEEDED 01/07 completed Not Available Not Available Not Available benzonata te 200 mg capsule TAKE 1 CAPSULE BY MOUTH EVERY 8 HOURS NEEDED FOR 7 DAYS 01/07 completed Not Available Not Available Not Available lisinopri l 20 mg tablet Take 1 tablet every day by oral route as directed for 90 days. 2024 active Not Available Not Available Not Avai lable ondansetr on HCl 4 mg tablet TAKE 1 TABLET BY MOUTH EVERY 8 HOURS 12/11 completed Not Available Not Available Not Available bupivacai ne HCl 0.5 % (5 mg/mL) injection solution Take 4 mL by injectio n route. 2023 active Not Available Not Available Not Avai lable phentermi ne 15 mg capsule TAKE 1 CAPSULE BY MOUTH ONCE DAILY IN THE MORNING FOR 30 DAYS 06/06 completed Not Available Not Available Not Available metronida zole 500 mg tablet Take 1 tablet every 8 hours by oral route for 7 days. 01/07 completed Not Available Not Available Not Available phentermi ne 37.5 mg tablet Take 1 tablet every day by oral route in the morning for 30 days. 04/28 completed Not Available Not Available Not Available amlodipin e 5 mg tablet TAKE 1 TABLET BY MOUTH ONCE DAILY 01/25 completed stopped taking all meds in [facility]2022 Not Available Not Available Not Available ciproflox acin 500 mg tablet Take 1 tablet every 12 hours by oral route for 5 days. active Not Available Not Available No t Available tramadol 50 mg tablet Take 1 tablet every 12 hours by oral route as needed for 15 days. 08/01 completed Not Available Not Available Not Available phentermi ne 30 mg capsule Take 1 capsule every day by oral route in the morning for 30 days. 2024 active Not Available Not Available Not Avai lable ketorolac 30 mg/mL (1 mL) injection solution 30 mg by injectio n route. 11/12 completed Not Available Not Available Not Available pantopraz ole 20 mg tablet,de layed release TAKE 1 TABLET BY MOUTH ONCE DAILY IN THE MORNING active Not Available Not Available No t Available dicyclomi ne 20 mg tablet TAKE 1 TABLET BY MOUTH THREE TIMES DAILY 01/06 completed Not Available Not Available Not Available Kenalog 10 mg/mL suspensio n for injection Take 1 mL by injectio n route. 2023 active [facility]: [phone] Not Available Not Available Not Available prochlorp erazine 25 mg rectal supposito ry UNWRAP AND INSERT 1 SUPPOSIT ORY RECTALLY EVERY 12 HOURS NEEDED FOR NAUSEA OR VOMITING 11/27 completed Not Available Not Available Not Available cephalexi n 500 mg capsule Take 1 capsule 3 times a day by oral route as directed for 7 days. active Not Available Not Available No t Available pantopraz ole 40 mg tablet,de layed release Take 1 tablet every day by oral route in the morning for 30 days. 02/15 completed Not Available Not Available Not Available lisinopri l 10 mg tablet Take 1 tablet every day by oral route as directed for 30 days. 01/07 completed Not Available Not Available Not Available Bentyl 10 mg/mL intramusc ular solution 20 mg by intramus c. route. 11/12 completed Not Available Not Available Not Available diclofena c sodium 75 mg tablet,de layed release Take 1 tablet every 12 hours by oral route as needed for 30 days. 07/18 completed Not Available Not Available Not Available monteluka st 10 mg tablet TAKE 1 TABLET BY MOUTH ONCE DAILY IN THE EVENING FOR 30 DAYS 08/01 completed Not Available Not Available Not Available sodium chloride 0.9 % intraveno us solution 1000 mL by intraven . route. 11/12 completed Not Available Not Available Not Available methylpre dnisolone 4 mg tablets in a dose pack TAKE BY MOUTH DIRECTED ON INSIDE OF PACKAGE 01/25 completed stopped taking all meds in 2022 Not Available Not Available Not Available fluticaso ne propionat e 50 mcg/actua tion nasal spray,sosa pension USE 2 SPRAY(S) IN EACH NOSTRIL ONCE DAILY NEEDED 01/25 completed stopped taking all meds in [facility]2022 Not Available Not Available Not Available Adult Low Dose Aspirin 81 mg tablet,de layed release Take 1 tablet every other day by oral route after meals for 90 days. 01/25 completed stopped taking all meds in [facility]20[facility] Not Available Not Available Not Available escitalop antwan 10 mg tablet TAKE 1 TABLET BY MOUTH ONCE DAILY IN THE MORNING FOR 30 DAYS 01/25 completed stopped taking all meds in [facility] Not Available Not Available Not Available Asprin Ec Low Dose 81 mg tablet,de layed release Take 1 tablet every day by oral route. active Not Available Not Available No t Available escitalop antwan 5 mg tablet TAKE 1 TABLET BY MOUTH ONCE DAILY IN THE MORNING FOR 30 DAYS 09/04 completed Not Available Not Available Not Available ibuprofen 05/14 completed Not Available Not Available Not Available ondansetr on HCl (PF) 4 mg/2 mL injection solution 4 mg by injectio n route. 11/12 completed Not Available Not Available Not Available Allergy 05/14 completed Not Available Not Available Not Available Vitals Date Recorded Body height Body mass index (BMI) Body weight Provider Name and Address Organization Details Last Updated DateTime 06/07/2024 175.26 cm 28.6 kg/m2 92304.92 g Izabela Zavala CMA [facility] [employer] 06/07/2024 14:56:02 Date Recorded Body height Body mass index (BMI) Body weight Provider Name and Address Organization Details Last Updated DateTime 06/28/2024 175.26 cm 28.1 kg/m2 95538.55 g Yecenia Jacobs CNA [facility] [employer] 06/28/2024 10:25:05 Date Recorded Body height Body mass index (BMI) Body weight Body temperature Oxygen saturation Oxygen saturation in Arterial blood by Pulse oximetry Systolic blood pressure Diastolic blood pressure Provider Name and Address Organization Details Last Updated DateTime 175.26 cm 28.1 kg/m2 42471.3 5 g 97.3 [degF] 96 % 96 % 140 mm[Hg] 90 mm[Hg] Evita Hanks RN [facility] [employer] 11:29:46 Date Recorded Heart rate Provider Name an d Address Organization Details Last Updated DateTime 08/01/2024 96 /min Mary Grace Spence [address], [facility] [address], [place], [address], MD [employer] [facility] [employer] 08/01/2024 11:33:10 Social History Question Answer Notes LastModified by Organizat ion Details LastModified Time Tobacco Smoking Status Current Every Day Smoker Alanna Kwong sherrie, [facility] [employer] 04/12/2024 10:03:08 Do You Have An Advance Directive? No [id number] Information not available 09/16/2022 What Is Your Level Of Alcohol Consumption? Occasional Information not available 06/28/2024 Do You Wear A Helmet When Biking? No N/A MIGRATION.66778 [id number] Information not available 09/16/2022 What Is Your Level Of Caffeine Consumption? Moderate MIGRATION.52257 [id number] Information not available 09/16/2022 In The 14 Days Before Symptom Onset, Have You Had Close Contact With A Laboratory-confir med COVID-19 While That Case Was Ill? No MIGRATION.02841 04910 Information not available 09/16/2022 In The 14 Days Before Symptom Onset, Have You Had Close Contact With A Person Who Is Under Investigation For COVID-19 While That Person Was Ill? No MIGRATION.13389 51401 Information not available 09/16/2022 What Type Of Diet Are You Following? REGULAR MIGRATION.44689 95923 Information not available 09/16/2022 What Is The Highest Grade Or Level Of School You Have Completed Or The Highest Degree You Have Received? [id number] MIGRATION.37947 07682 Information not available 09/16/2022 Have There Been Any Changes To Your Family Or Social Situation? No MIGRATION.04919 83689 Information not available 09/16/2022 Do You Use Insect Repellent Routinely? Yes MIGRATION.33401 07981 Information not available 09/16/2022 Do You Have A Medical Power Of Grinder Brake Lining? No MIGRATION.45532 86184 Information not available 09/16/2022 What Was The Date Of Your Most Recent Tobacco Screening? 04/12/2024 [email or web address] Information not available 04/12/2024 Do You Have Any Pets? No MIGRATION.56408 53846 Information not available 09/16/2022 What Is Your Relationship Status? MIGRATION.55604 32740 Information not available 09/16/2022 Do You Use Your Seat Belt Or Car Seat Routinely? Yes MIGRATION.94970 59932 Information not available 09/16/2022 Do You Have Smoke And Carbon Monoxide Detectors In Your Home? Yes MIGRATION.68656 08262 Information not available 09/16/2022 At What Age Did You Start Smoking Tobacco? 18 MIGRATION.03769 97765 Information not available 09/16/2022 Are You Passively Exposed To Smoke? No MIGRATION.48235 26882 Information not available 09/16/2022 Are There Any Smokers In Your House? Yes Outdoors MIGRATION.75375 82700 Information not available 09/16/2022 How Much Tobacco Do You Smoke? 0.5 PPD Information not available 06/28/2024 Do You Participate In Social Media? Yes MIGRATION.50505 64364 Information not available 09/16/2022 Do You Feel Stressed (tense, Restless, Nervous, Or Anxious, Or Unable To Sleep At Night)? [id number] MIGRATION.38826 80266 Information not available 09/16/2022 Do You Use Any Illicit Or Recreational Drugs? No MIGRATION.08085 33553 Information not available 09/16/2022 Do You Use Sunscreen Routinely? Yes MIGRATION.22897 15598 Information not available 09/16/2022 Has Tobacco Cessation Counseling Been Provided? No MIGRATION.52073 18826 Information not available 09/16/2022 How Many Years Have You Smoked Tobacco? 30 Information not available 06/28/2024 Have You Recently Traveled Abroad? No MIGRATION.57286 01075 Information not available 09/16/2022 Are You Currently In School? No MIGRATION.54342 46212 Information not available 09/16/2022 Do You Have Any Dietary Restrictions? No MIGRATION.38979 24312 Information not available 09/16/2022 Do You Or Have You Ever Used Any Other Forms Of Tobacco Or Nicotine? No MIGRATION.33743 17058 Information not available 09/16/2022 Sex: Female Functional Status Question Answer Note LastModified by Organizat ion Details LastModified Time What is your exercise level? Moderate [id number] Information not available 09/16/2022 Mental Status None recorded. Family History Relationship Description Onset Age of this Age Resolved Age Notes LastModified by Organization Details LastModified Time Paternal Grandmother Heart disease [email or web address] Not available 2023 11:33:35 Maternal Grandmother Malignant lymphoma MIGRATION.[id number] Not available 09/16/2022 23:10:50 Father Diabetes mellitus MIGRATION.093 [id number] Not available 09/16/2022 23:10:50 Mother Glaucoma [email or web address] Not available 0 02/10/2024 11:33:45 Sister Epilepsy [email or web address] Not available 0 02/10/2024 11:33:57 Brother Herpes zoster [email or web address] Not available 2023 11:34:06 Unspecified Relation Hypertensive disorder father 's side Not available 06/28/2024 10:27:21 Medical History Condition Response ARTHRITIS Y HEADACHES/MIGRAINES Y GERD/NAUSEA Y SKIN PROBLEMS Y KIDNEY DISEASE URINARY/BLADDER/KIDNEY PROBLEMS Y DEPRESSION (INCLUDING POST ) Y INSOMNIA HIGH CHOLESTEROL / HYPERLIPIDEMIA Y Gynecological History Statement/Question Response Flow Moderate Date of LMP 02/22/2024 STIs/STDs N Dislike of Light during Menstrual Headac he N Date of Last Pap 04/10/2021 Duration of Flow (days) 6 Most Recent Mammogram 02/17/2024 Age at Menarche 11 Breast Problems YES How many live births 2 Date of Last Mammogram 03/19/2021 Date of Last Colonoscopy Frequency of Cycle (Q days) 6 Most Recent Bone Density Sexually Active? Y Weight gain N Menses Monthly Y Date of Last Pap Smear 03/07/2024 Discharge NONE Obstetrics History GPAL:G 0 P 0 0 0 0 Immunizations Vaccine Type Date Status Note Provider Nam e and Address Organization Details Recorded Time COVID-19, mRNA, LNP-S, PF, 100 mcg/0.5mL dose or 50 mcg/0.25mL dose 01/18/2021 completed Not Available [facility] 3 23:12:43 COVID-19, mRNA, LNP-S, PF, 100 mcg/0.5mL dose or 50 mcg/0.25mL dose 12/28/2020 completed Not Available [facility] 3 23:12:43 Past Encounters Encounter ID Performer Location Encounter Start Date Encounter Closed Date Diagnosis/Indication Diagnosis SNOMED-CT Code Diagnosis ICD10 Code Diagnosis Note [id number] [facility] [address] [address] 03/13/2021 00:00:00 03/13/2021 18:12:51 [id number] [facility] [place] [address] [place] [address] 03/14/2021 00:00:00 03/14/2021 11:51:11 [id number] [facility] [place] [address] [place] [address] 03/27/2021 00:00:00 03/27/2021 11:34:28 [id number] [facility] [place] [address] [place] [address] 04/10/2021 00:00:00 04/10/2021 12:25:48 [id number] [facility] [place] [address] [place] [address] 05/01/2021 00:00:00 05/01/2021 11:12:16 [id number] [facility] [place] [address] [place] [address] 06/02/2021 00:00:00 06/02/2021 14:39:51 [id number] [facility] [place] [address] [place] [address] 06/09/2021 00:00:00 06/09/2021 12:10:28 [id number] [facility] [place] [address] [place] [address] 06/30/2021 00:00:00 09/11/2021 14:49:40 [id number] [facility] [place] [address] [place] [address] 07/07/2021 00:00:00 07/07/2021 11:46:02 [id number] [facility] [place] [address] [place] [address] 08/04/2021 00:00:00 08/04/2021 10:15:50 [id number] [facility] [place] [address] [place] [address] 09/04/2021 00:00:00 09/04/2021 11:21:11 [id number] [facility] [place] [address] [place] [address] 09/15/2021 00:00:00 09/15/2021 18:05:29 [id number] [facility] [place] [address] [place] [address] 10/08/2021 00:00:00 10/08/2021 15:02:21 [id number] [facility] [place] [address] [place] [address] 11/06/2021 00:00:00 11/06/2021 11:39:39 [id number] [facility] [place] [address] [place] [address] 11/14/2021 00:00:00 11/14/2021 14:04:29 [id number] [facility] [place] [address] [place] [address] 11/27/2021 00:00:00 11/27/2021 11:28:32 [id number] [facility] [place] [address] [place] [address] 12/11/2021 00:00:00 12/11/2021 11:03:35 [id number] [facility], [address] [place] [address] 01/06/2022 00:00:00 01/06/2022 16:37:55 [id number] [facility] [place] [address] [place] [address] 01/15/2022 00:00:00 01/15/2022 12:36:39 [id number] [facility] [place] [address] [place] [address] 03/10/2022 00:00:00 03/10/2022 12:16:59 [id number] [facility] [place] [address] [place], [place] [address] [address] 04/28/2022 00:00:00 04/28/2022 12:50:15 [id number] [facility] [place] [address] [place], [place] [address]ver[place] [address] 05/14/2022 00:00:00 05/14/2022 11:40:40 [id number] [facility] [address] [place] [address] 05/20/2022 00:00:00 05/20/2022 16:29:[id number] [address] 06/08/2022 00:00:00 06/08/2022 15:48:58 [id number] [facility] U[facility] [address], [address] [place] [address] 07/07/2022 00:00:00 07/07/2022 14:11:03 [id number] David Monet MD [address] [address] 12/10/2022 15:59:36 12/10/2022 16:27:48 Bronchitis 60069940 J40 Cough 46930712 R05.9 Seasonal a llergic rhinitis 141845732 J30.2 [id number] David Monet MD [address] [place] [address] 01/07/2023 10:51:00 01/07/2023 11:42:32 Adult health examination 683051865 Z00.00 Chronic low back pain 27 8941260 M54.50 Hyperparathyroidism 6699 9008 E21.3 Overweight 577514577 E66 .3 Ex-smoker 9340180 Z87.89 1 Screening mammography 24 465486 Z12.31 Seasonal a llergic rhinitis 465398093 J30.2 Gynecologi c examination 20947115 Z01.419 Anxiety disorder 0123668 06 F41.9 Allergic bronchitis 4057 76243 J45.909 Smoker 37261583 F17.377 [id number] David Monet MD [address] [address] 01/26/2024 12:09:38 01/26/2024 12:52:17 Adult health examination 990650729 Z00.00 Chronic low back pain 27 0354983 M54.50 Hyperparathyroidism 6699 9008 E21.3 Overweight 921435532 E66 .3 Screening mammography 24 166853 Z12.31 Anxiety disorder F41.9 Smoker 10447303 F17.200 Sleep apnea 42663339 G47 .30 Pain in ri ght hip joint 1566666252 07535 M25.551 Screening colonoscopy 44 5223196 Z12.11 [id number] David Monet MD [address] [address] 02/03/2024 10:06:30 02/03/2024 11:23:43 [id number] Manuel Akhtar MD [facility] [address] [address] 02/10/2024 10:25:49 02/10/2024 16:20:31 Obstructive sleep apnea syndrome 46111641 G47.33 [id number] David Monet MD [address] [address] 02/16/2024 15:15:34 02/16/2024 15:51:39 Chronic low back pain 054177908 M54.50 Hyperparathyroidism 6699 9008 E21.3 Overweight 892157720 E66 .3 Anxiety disorder F41.9 Smoker 28870194 F17.200 Sleep apnea 73463577 G47 .30 Pain in ri ght hip joint 8350439731 41798 M25.551 Hyperlipidemia 26351947 E78.5 Gastroesop hageal reflux disease without esophagitis 896941656 K21.9 Hypertensive disorder 38 521238 I10 Osteoarthritis of hip 23 0544233 M16.9 Rt [id number] JUDY Anne [facility] [address] 03/07/2024 11:01:40 03/07/2024 11:43:23 Gynecologic examination 28441914 Z01.419 Urinary symptoms 6155452 08 R39.9 [id number] Chris Roger MD [facility]rolog[address] [address] 04/12/2024 09:54:03 04/12/2024 11:21:40 Blood in urine 61637110 R31.9 [id number] Chris Roger MD [address] [address] 05/05/2024 14:01:56 05/08/2024 09:27:45 Kidney stone 24776698 N20.0 Complex renal cyst 54070 1001 N28.1 [id number] David Monet MD [address] [address] 05/09/2024 11:34:06 05/09/2024 12:16:39 Hyperlipidemia 38264199 E78.5 Chronic low back pain 27 8427017 M54.50 Hyperparathyroidism 6699 9008 E21.3 Overweight 525795807 E66 .3 Anxiety disorder 1636440 06 F41.9 Smoker 47822821 F17.200 Sleep apnea 01332191 G47 .30 Pain in ri ght hip joint 0349649862 49641 M25.551 Osteoarthritis of hip 23 2692796 M16.9 Rt Gastroesop hageal reflux disease without esophagitis 018813128 K21.9 Hypertensive disorder 38 607040 I10 [id number] David Monet MD [address] [address] 06/06/2024 10:31:08 06/06/2024 11:18:09 Pain in right hip joint 9045007467 85900 M25.551 Hyperlipidemia 79400663 E78.5 Hypertensive disorder 38 731922 I10 Chronic low back pain 27 4302510 M54.50 Hyperparathyroidism 6699 9008 E21.3 Overweight 575681771 E66 .3 Gastroesop hageal reflux disease without esophagitis 756107502 K21.9 Anxiety disorder 06 F41.9 Smoker 85908306 F17.200 Sleep apnea 17232356 G47 .30 Osteoarthritis of hip 23 3014273 M16.9 Rt [id number] Chris Roger MD [facility] U[facility] [place] [address] [facility], [address] [place] [address] 06/07/2024 14:53:36 06/08/2024 09:07:50 Simple renal cyst 82795185 N28.1 [id number] Kris Benoit MD [facility] [place] [address] [place] [address] 06/28/2024 10:11:01 06/28/2024 10:53:32 Pain in right hip joint 9934814350 21906 M25.171 [id number] David Monet MD [address] [address] 07/26/2024 08:40:47 07/26/2024 08:54:11 [id number] David Monet MD [address] [address] 08/01/2024 11:21:38 08/02/2024 10:33:09 Pain in right hip joint 4164390702 92615 M25.551 Osteoarthritis of hip 23 1984272 M16.9 Rt Hyperlipidemia 51986882 E78.5 Hypertensive disorder 38 431949 I10 Chronic low back pain 27 9076555 M54.50 Hyperparathyroidism 6699 9008 E21.3 Overweight 024190347 E66 .3 Gastroesop hageal reflux disease without esophagitis 389169355 K21.9 Anxiety disorder 06 F41.9 Smoker 87398942 F17.200 Sleep apnea 68252855 G47 .30 Pre-surger y evaluation 977242945 Z01.625 [id number] David Monet MD [address] [address] 08/08/2024 09:54:54 08/14/2024 15:14:26 Health Concerns Section Related Observation LastModified by Organization Detai ls LastModified Time None Recorded Concern Status LastModified by Organization Details LastModified Time None Recorded Advance Directives Directive N: Payers Encounter Date Sequence Insurance Name Policy Number Policy La Covered Member ID La Member ID Guarantor Name 06/07/2024 1 [place] [facility] (MEDICAID REPLACEMENT - HMO) [id number] Kathleen Marcelo [id number] Kathleen Y Marcelo 06/28/2024 1 [place] [facility] [facility] (MEDICAID REPLACEMENT - [place]) [id number] Kathleen Marcelo [id number] Kathleen Y Marcelo 07/26/2024 1 [place] [facility] (MEDICAID REPLACEMENT - [place]MO) [id number] Kathleen Marcelo [id number] Kathleen Y Marcelo 08/01/2024 1 [place] [facility] (MEDICAID REPLACEMENT - HMO) [id number] Kathleen Marcelo [id number] Kathleen Y Marcelo 08/08/2024 1 [place] [facility] (MEDICAID REPLACEMENT - HMO) [id number] Kathleen Marcelo [id number] Kathleen Y Marcelo Notes Date Note Type Note Provider Name and Address Organization Details Recorded Time 4 text/html this patient had a CT scan just to make sure to look at her cysts in her kidney and also make sure no stones. The CT scan reveals that she has a 2 cm cyst in the right kidney there is no mention of it being a complex cyst. She has no stones. Chris Roger MD [address] [place] [address], [place], [address], [place] [facility] 06/07/2024 18:13:45 5 text/html FUV + Pre-op exam: Pt is f/u with ENT at [facility] [place] for her hyperparathyroidism and she will be going for the surgery on 08/21/24 with them. Pt says they have done all testing and scans from their side and I don't need to do any testing. Pt will be getting a cardiac clearance from her heart doctor too. Doing overall well. Denies any problem with meds. Denies any new concerns. Pt denies any chest pain/sob/abdo pain/fever/chills/n/v/c/ d/urinary symptoms. So far, 6 lbs wt loss on Phentermine. Pt is f/u with Ortho for her chronic Rt hip pain. Pt has not seen GI yet. Doing overall well with her mood and anxiety. No concern with it. Pt is f/u with Endo & ENT at [place] for her hyperparathyroidism & hypercalcemia.Pt is f/u with Uro for her kidney cyst, kidney stone and microscopic hematuria. Pt has lost about 45 lbs on Phentermine in the past. David Monet MD [address] [facility], [place] [address], [place], [address], [place] [facility] 08/01/2024 11:54:42 OBGyn Episode No OBEpisode recorded.
--- OUTSIDE RECORDS SUMMARY | 2024-08-17 15:50 | XMS_ITS | CONTINUITY OF CARE DOCUMENT ---
Author Name evelyn rivas Address Unknown Organization [facility] Address [address] [place] [address] Phone [phone] Care Team Providers Care Special Education Resource Teacher Name Role Phone Fredy Truong MD Unavailable HÉCTOR BARRERA MD Unavailable [phone] HÉCTOR BARRERA MD Unavailable PROBLEMS Condition Status Date Provider Notes Cardiology examination active Fredy doyle MD Elevated Troponin, ruled out for AR active Fredy Truong MD HTN essential active Fredy Truong MD Hypercholesterolemia active Fredy Truong MD Preop cardiovasc. examination active Fredy Truong MD Hypercalcemia active Fredy Truong MD Hyperparathyroidism active Fredy Nunez Anxiety active Fredy Truong MD ENCOUNTERS Date Type Provider Location Encounter Diag nosis - In-person encounter Office Visit Fredy Truong MD [facility] - In-person encounter Office Visit Fredy Truong MD [facility] - In-person encounter Office Visit Fredy Truong MD [facility] - In-person encounter Office Visit Fredy Truong MD [facility] Elevated Troponin, ruled out for MIAnxie ty - In-person encounter Office Visit Fredy Truong MD [facility] Cardiology examinationElevated Troponin, ruled out for MIHTN essentialHypercholesterolemiaPreop cardiovasc. examinationHypercalcemiaHyperparathyroidism VITAL SIGNS Date Observation Value Provider Body Mass Index (Ratio) 27.91 kg/m2 Yola Truong MD blood pressure, diastolic 84 mm[Hg] Li nkLog blood pressure, systolic 118 mm[Hg] Rufina kLog oxygen saturation, oximetry 98 % Heidi Montilla pulse rate 97 /min Heidi Montilla blood pressure, cuff size regular Ta janett Montilla blood pressure, diastolic 84 mm[Hg] Ta bitha [...] BY MOUTH ONCE DAILY IN THE MORNING Fredy Truong MD celecoxib 200 mg capsule active [...] Payer name Policy type / Coverage type [employer] [employer] [facility] Medicaid [id number] ADVANCE DIRECTIVES Name Date DISCUSSED - NO DECISION MADE TREATMENT PLAN Date Name Performer [id number],B, H er updated medication list for this problem includes: Lisinopril 20 Mg Tablet (Lisinopril) ..... Take 1 tablet by mouth once a day Amlodipine 5 Mg Tablet (Amlodipine) ..... Take 1 tablet by mouth once a day BP today: 116/80 P rior BP: 168/109 (08/31/2022) Fredy Truong MD [id number],S, H er updated medication list for this problem includes: Atorvastatin 20 Mg Tablet (Atorvastatin) Fredy Truong MD [id number],S, Fredy Gardner ra, MD [id number],S, Fredy Gardner ra, MD [id number],W, Fredy Gardner ra, MD [id number],S, Fredy Gardner ra, MD [id number],S, Fredy Gardner ra, MD [id number],S, H er updated medication list for this problem includes: Atorvastatin 20 Mg Tablet (Atorvastatin) Fredy Truong MD [id number],W, B P today: 157/109 P rior BP: 164/112 (06/02/2022) The following medications were removed from the medication list: Lisinopril 10 Mg Tablet (Lisinopril) & #13;Her updated medication list for this problem includes: Lisinopril 10 Mg Tablet (Lisinopril) Fredy Truong MD [id number],N, Fredy Gardner ra, MD [id number],N, Fredy Gardner ra, MD [id number],N, H er updated medication list for this problem includes: Lisinopril 10 Mg Tablet (Lisinopril) Fredy Truong MD [id number],S, Fredy Gardner ra, MD [id number],W, H er updated medication list for this problem includes: Lisinopril 10 Mg Tablet (Lisinopril) Fredy Truong MD [id number],N, Fredy Gardner ra, MD Telehealth - f/u [...]
[2024-08-17 15:58] LABS: Basophils Percent Auto 0.2 % (0.2-1.2); Eosinophils Percent Auto 0.2 % (0-4.4); Hematocrit 49.5 % (37.0-47.0); Hemoglobin 17.1 g/dL (12.0-15.0); Immature Granulocyte Absolute 0.07 K/mm3 (0.00-0.031); Immature Granulocyte Percent A 0.5 % (0-0.5); Lymphocytes Absolute Auto 0.94 K/mm3 (0.9-3.2); Lymphocytes Percent Auto 7.2 % (18.3-44.2); Mean Corpuscular HGB Conc 34.5 g/dl (32-36); Mean Corpuscular Hemoglobin 30.5 pg (26-34); Mean Corpuscular Volume 88.4 fl (80-100); Monocytes Absolute Auto 0.9 K/mm3 (0.1-0.6); Monocytes Percent Auto 6.6 % (2.6-8.5); Neutrophils Absolute Auto 11.2 K/mm3 (1.3-6.7); Neutrophils Percent Auto 85.3 % (45.5-73.1); Platelet Count Result 289 k/mm3 (150-375); Red Cell Distribution Width 12.4 % (11.5-14.5); White Blood Count 13.1 K/mm3 (4.5-10.0)
[2024-08-17 16:25] LABS: Alanine Aminotransferase 25 U/L (6-35); Albumin Level 4.7 g/dL (3.5-5.1); Alkaline Phosphatase 96 U/L (38-126); Anion Gap 12 mmol/L (4-12); Aspartate Amino Transferase 29 U/L (14-36); Bilirubin,Total 0.5 mg/dL (0.2-1.3); Blood Urea Nitrogen 10 mg/dL (7-17); Calcium 10.9 mg/dL (8.4-10.2); Carbon Dioxide 27 mmol/L (22-30); Chloride 96 mmol/L (98-107); Estimated CRCL calculation 91 ml/min; Estimated Glomerular Filt Rate > 60; Glucose 133 mg/dL (65-110); Lipase 110 U/L (23-300); Potassium 3.7 mmol/L (3.4-5.0); Sodium 135 mmol/L (137-145)
[2024-08-17 16:31] LABS: Influenza A QL RT-PCR Negative (Negative); Influenza B QL RT-PCR Negative (Negative); RSV RNA, RT-PCR Negative (Negative); SARS-CoV-2 RNA PCR Negative (Negative)
[2024-08-17] MEDS: ONDANSETRON INJ 4 MG/2 ML VIAL IV PUSH (16:46)
[2024-08-17] MEDS: FAMOTIDINE 20 MG/2 ML VIAL IV PUSH (16:49)
[2024-08-17 16:50] VITALS: BP 190/125; PULSE 99; RESP 17; O2SAT 100
== END 2024-08-17 17:34 | disposition home or self-care (01) ==
PROVIDERS: Emergency Provider Physician Assistant; PCP Family Medicine
DX: K52.9 Noninfective gastroenteritis and colitis, unspecified (principal); I10 Essential (primary) hypertension; Z20.822 Contact with and (suspected) exposure to COVID-19; E78.5 Hyperlipidemia, unspecified
CPT/HCPCS: 36415; 80053; 83690; 85025; 87637; 96361; 96374; 96375; 99284; J2405